=== PATIENT | female | born 1950 ===

== ENCOUNTER 2024-08-21 14:40 | Outpatient (REF) | payer MEDICARE, OTHER, SELFPAY ==
--- NOTE | 2024-08-21 12:25 | ENDOMET_PTH ---
PATIENT: Hillary Reyes LOC: [facility] U#:[id number] AGE/SX: 74/F ROOM: RE08/21/[address]: Yolanda Fermin MD : 1950 BED: DIS: 08/21/2024 SPEC #: [id number] RECD: 08/21/24 15:24 STATUS: OCTAVIO REQ #: [id number] RADHA: 08/21/24 12:[address]: Yolanda Fermin DEPT: Surgical Specimen RECD BY: Annamarie Angeles ENTERED: 08/21/24 15:25 SP TYPE: Endomet OT DR: Unknown,Unknown Tissues: 1 - ENDOMETRIUM BX/CURRETTE Procedures: GROSS AND MICRO LEVEL 4 Comments: [id number]
== END 2024-08-21 14:41 | disposition home or self-care (01) ==
LOC: LBN 14:40
PROVIDERS: Visit Provider Obstetrics & Gynecology
DX: R30.0 Dysuria (principal); N85.8 Other specified noninflammatory disorders of uterus
CPT/HCPCS: 88305; 87086

== ENCOUNTER 2024-09-14 02:42 | Outpatient (CLI) | payer MEDICARE, OTHER, SELFPAY ==
--- NOTE | 2024-09-14 08:15 | DI.US_ITS ---
Exam(s) US PELVIS TRANSVAGINAL EXAM: US PELVIS TRANSVAGINAL CLINICAL HISTORY: right adnexal mass f/u, N94.89 TECHNIQUE: Transabdominal and transvaginal imaging was performed using standard protocol. COMPARISON: US US PELVIC WITH TRANSVAGINAL US-M2 from 07/15/2024 FINDINGS: Catheter within bladder. There is limited visualization of the uterus. UTERUS: Anteverted. 5.4 x 2.2 x 3.0 cm Endometrium: Not visible. No fluid seen on today's exam. Myometrium: Benign calcification again noted. Cervix: Unremarkable. OVARIES: Right: Cyst or mass: Roughly 5.5 centimeter cystic lesion is noted to the right of the uterus. There appears to be thick peripheral calcification as well as soft tissue components. Left: Left ovary was not visualized. CUL-DE-SAC: Free fluid: None. IMPRESSION: 1. Suboptimal visualization of the pelvic structures. No fluid is identified within the endometrium on today's exam. 2. A mixed cystic and solid mass again identified in the right adnexal region. The left ovary is not able to be visualized. CT recommended for further evaluation. DATA REPOSITORY:
== END 2024-09-14 03:02 ==
LOC: DI 02:42
PROVIDERS: Visit Provider Obstetrics & Gynecology
DX: N94.89 Other specified conditions associated with female genital organs and menstrual cycle (principal)
CPT/HCPCS: 76830; 76856

== ENCOUNTER 2024-11-27 05:23 | Outpatient (CLI) | payer MEDICARE, OTHER, SELFPAY ==
--- NOTE | 2024-11-27 | DI.MRI_ITS ---
Exam(s) MR PELVIS WO/W EXAM: MR PELVIS WO/W CLINICAL HISTORY: ADNEXAL MASS N94.89 TECHNIQUE: Multiplanar multisequence MRI of Pelvis was performed. CONTRAST MATERIAL: IV Contrast: 20 mL of Dotarem contrast administered. COMPARISON: US US PELVIC WITH TRANSVAGINAL US-M2 from 07/15/2024 US US PELVIS TRANSVAGINAL from 09/14/2024 FINDINGS: Uterus: The uterus is anteverted and measures 4.8 by 1.8 by 3.7 cm. The endometrial stripe does not appear thickened. There is no visible fluid in the endometrial canal. Ovaries: The left ovary has a normal atrophic postmenopausal appearance. It is located lateral to the sigmoid colon which shows severe diverticulosis, making it impossible to visualize by ultrasound. The right ovary is also located directly adjacent to bowel. There is no visible adnexal mass. The distal sigmoid veers toward the right of the uterus and adjacent to the right ovary which is likely what was being mistaken for a mass on the ultrasound examinations. Bladder: Unremarkable. No wall thickening or evidence of mass. Bowel: Severe diverticulosis of the sigmoid colon. Bones: Degenerative disc changes at L5-S1. The hips, pubic symphysis and SI joints are unremarkable. IMPRESSION: No evidence of a right adnexal mass. Findings on ultrasound appear to correspond to the rectosigmoid colon. DATA REPOSITORY:
[2024-11-27] MEDS: Normal Saline Flush 10 ML SYR IVP (14:19)
[2024-11-27] MEDS: Gadoterate meglumine 20 ML SYRINGE IVP (14:19)
== END 2024-11-27 05:43 ==
PROVIDERS: Visit Provider Obstetrics & Gynecology
DX: N94.89 Other specified conditions associated with female genital organs and menstrual cycle (principal)
CPT/HCPCS: 72197